=== PATIENT | male | born 1980 | race Caucasian/White ===

== ENCOUNTER 2019-02-06 10:27 | Emergency (ER) | payer OTHER ==
[2019-02-06] MEDS ORDERED: DIPH,PERTUS(ACELL)TETVAC-LF 0.5 ML VIAL IM ONE (10:46)
[2019-02-06] MEDS ORDERED: LIDOCAINE 1% INJ 10MG/ML (20 ML MDV) SQ ONE (10:46)
[2019-02-06] MEDS ORDERED: CEPHALEXIN 500MG STARTER PACK 4 CAP BTL PO STA (11:14)
--- NOTE | 2019-02-06 11:19 | ED ---
General Adult HPI - General Chief complaint: Skin/Abscess/Foreign Body Stated complaint: fishing hook in left middle finger Time Seen by Provider: 02/06/19 10:46 Source: patient, RN notes reviewed Mode of arrival: ambulatory Limitations: no limitations - History of Present Illness Initial comments: 38-year-old male presents to the emergency department for a chief complaint of fishhook in the left third digit. [place] and he tried to steady himself and accidentally got poked with the fishhook. Patient states he tried to get it out on his own but was unable to. Patient states it had not yet been used and was clean. Patient is not sure when his last tetanus shot was. Patient has no other complaints at this time. Did not hit his head or sustain any other injuries. Patient has no other complaints at this time including shortness of breath, chest pain, abdominal pain, nausea or vomiting, headache, or visual changes. - Related Data Previous Rx's Medication Instructions Recorded Cephalexin [Keflex] 500 mg PO Q6HR 3 Days #12 cap 02/06/19 Allergies Allergy/AdvReac Type Severity Reaction Status Date / Time No Known Allergies Allergy Verified 02/06/19 10:44 Review of Systems ROS Statement: Those systems with pertinent positive or pertinent negative responses have been documented in the HPI. ROS Other: All systems not noted in ROS Statement are negative. Past Medical History Past Medical History: No Reported History History of Any Multi-Drug Resistant Organisms: None Reported Past Surgical History: No Surgical Hx Reported Past Psychological History: No Psychological Hx Reported Smoking Status: Never smoker Past Alcohol Use History: None Reported Past Drug Use History: None Reported General Exam Limitations: no limitations General appearance: alert, in no apparent distress Head exam: Present: atraumatic, normocephalic, normal inspection Eye exam: Present: normal appearance, PERRL, EOMI. Absent: scleral icterus, conjunctival injection, periorbital swelling ENT exam: Present: normal exam, mucous membranes moist Neck exam: Present: normal inspection, full ROM. Absent: tenderness, meningismus, lymphadenopathy Respiratory exam: Present: normal lung sounds bilaterally. Absent: respiratory distress, wheezes, rales, rhonchi, stridor Cardiovascular Exam: Present: regular rate, normal rhythm, normal heart sounds. Absent: systolic murmur, diastolic murmur, rubs, gallop, clicks Extremities exam: Present: full ROM (Full range motion of the left third digit including DIP, PIP, MCP), normal capillary refill (Capillary refill less than 2 seconds in left third digit and left upper extremity), other (There is a one prong of a 3 pronged fishhook in patient's finger pad of left third digit.). Absent: joint swelling (No erythema edema or evidence of infection) Neurological exam: Present: alert, oriented X3, CN II-XII intact Course Vital Signs 02/06/19 10:42 Temperature 97.7 F Pulse Rate 68 Respiratory 18 Rate Blood Pressure 131/88 O2 Sat by Pulse 97 Oximetry Medical Decision Making - Medical Decision Making 38-year-old male presents to the emergency determine for a chief complaint of fishhook in the left third digit. Lidocaine was used to numb the area. The 3 pronged fishhook was then removed using pliers and traction. Full fishhook was removed with [place] intact without any difficulty or complications. Very small puncture wound present, no lacerations or other injuries. Area was cleaned thoroughly with soap and water. Full range of motion of the left third digit. Neurovascular intact after removal. Patient was given tetanus shot as well as Keflex starter pack. Will be put on 3 days of antibiotics to prevent infection. However I did discuss symptoms of infection and to return if these occur. He will return if he has any other worsening symptoms as well. He will follow up with primary care in 1-2 days. Disposition Clinical Impression: [place] injury to finger Disposition: HOME SELF-CARE Condition: Good Instructions (If sedation given, give patient instructions): Laceration (ED) Additional Instructions: Please keep the area clean. Take Keflex as directed. Monitor for signs of infection such as spreading or streaking redness or drainage and return here if this occurs. Otherwise follow-up with primary care in 1-2 days. Prescriptions: Cephalexin [Keflex] 500 mg PO Q6HR 3 Days #12 cap Is patient prescribed a controlled substance at d/c from ED?: No Referrals: Roni Cadet MD [Primary Care Provider] - 1-2 days Time of Disposition: 11:17
[2019-02-06 11:41] VITALS: BP 138/87; PULSE 87; RESP 16; TEMP 98
== END 2019-02-06 11:39 | disposition home or self-care (01) ==
LOC: EC 10:27
DX: S60.453A Superficial foreign body of left middle finger, initial encounter (principal); Z23 Encounter for immunization; W45.8XXA Other foreign body or object entering through skin, initial encounter; Y93.89 Activity, other specified; Y92.828 Other wilderness area as the place of occurrence of the external cause
CPT/HCPCS: 90715; 99283; 90471; J2001